=== PATIENT | male | born 1950 | race Caucasian/White ===

== ENCOUNTER 2017-03-03 08:43 | Day surgery (SDC) | payer MEDICARE ==
[2017-03-03] VITALS (9 sets, daily range): BP systolic 106–180; BP diastolic 53–105; PULSE 62–73; RESP 18–20; TEMP 97.8–98.3; O2SAT 95–98
[~2017-03-03] VITALS: Ht 180.3 cm; Wt 131.0 kg
[~2017-03-03 08:43] MED LIST: ALLO300T2 PO; AMLO5TAB2 PO; BENA20TA PO; CYCL25CA4 PO; LEVO25TA4 PO; METO50TA PO; MYCO1TAB2 PO; OMEP20TA93 PO; TRAM50TA PO
[2017-03-03] MEDS ORDERED: SODI650T PO (10:02)
[2017-03-03] MEDS ORDERED: SODIUM CHLOR 0.9% 1000 ML IV SCH (10:30)
[2017-03-03] MEDS ORDERED: LIDOCAINE 1%/EPINEPHrine 1:100,000 SOLN 20 ML VIAL ONE (11:12)
[2017-03-03] MEDS ORDERED: MIDAZOLAM HCL 2 MG/2 ML VIAL ONE (11:23)
--- NOTE | 2017-03-03 13:05 | RADRPT ---
EXAM DATE/TIME: 03/03/2017 11:48 [place] COMPARISON: No previous studies available for comparison. INDICATIONS : Elevated liver function tests. SEDATION TIME: 30 minutes BIOPSY SITE: liver MEDICATION(S): 1.) 3 mg midazolam (Versed) IV 2.) 150 mcg fentanyl (Sublimaze) IV DEVICE(S): 1.) 18 gauge Temno core biopsy needle MEDICAL HISTORY : Carcinoma, prostate. Hypertension. SURGICAL HISTORY : liver transplant, hernia repair ENCOUNTER: Initial ACUITY: 1 day PAIN SCORE: 0/10 LOCATION: Bilateral abdomen A total of one core specimen(s) were obtained and sent to the laboratory for pathologic evaluation. PROCEDURE: 1. CT guided liver biopsy. 2. Conscious sedation with continuous EKG and oximetry monitoring. 3. EKG and oximetry remained stable throughout the procedure. Prior to the procedure informed consent was obtained. Any appropriate prior imaging studies were rev iewed. Using automated exposure control and adjustment of the mA and/or kV according to patient size, radiat ion dose was kept as low as reasonably achievable to obtain optimal diagnostic quality images. DICOM format image data is available electronically for review and comparison. The site was prepped in a sterile fashion. Full sterile technique was used, including cap, mask, idalmis rile gloves and gown and a large sterile sheet. Hand hygiene and 2% chlorhexidine and/or betadine/al cohol prep was utilized per protocol for cutaneous antisepsis. The skin and subcutaneous tissues wer e infiltrated with local anesthetic solution. With CT guidance the previously identified target was localized. Biopsy was performed using the presc ribed needle as above. Adequate hemostasis was obtained with compression at the puncture site. Follow-up CT scan reveals no hemorrhage. The patient tolerated the procedure well and there were no complications. The patient was returned to the Radiology Outpatient Unit in stable condition. CONCLUSION: Uncomplicated CT guided biopsy. Kevin Padilla MD on March 03, 2017 at 13:02 Board Certified Radiologist. This report was verified electronically.
== END 2017-03-03 16:22 | disposition home or self-care (01) ==
LOC: HRAD 08:43 → HRIP 08:43 → HRAD 16:22
PROVIDERS: ATTEND Internal Medicine Gastroenterology
DX: K75.89 Other specified inflammatory liver diseases (principal); R79.89 Other specified abnormal findings of blood chemistry; K21.9 Gastro-esophageal reflux disease without esophagitis; I10 Essential (primary) hypertension; Z94.4 Liver transplant status
CPT/HCPCS: 47000; 77012; 88307; 88313; J2250; J3010; J7030